=== PATIENT | female | born 1945 | race Caucasian/White ===

== ENCOUNTER 2021-09-07 06:00 | Day surgery (SDC) | payer OTHER ==
[~2021-09-07] VITALS: Ht 160 cm; Wt 47.6 kg
[~2021-09-07 06:00] MED LIST: CHILDREN'S ASPI81 MG PO; LYRICA100 MG PO; NORVASC2.5 M1 PO; PROVENTIL HFA6.7 GM IH; SYNTHROID50 MCG PO; ZESTRIL10 M1 PO; ZOCOR20 MG PO
== END 2021-09-07 11:50 | disposition home or self-care (01) ==
LOC: CIR.AMB 06:00
PROVIDERS: ATTEND Anesthesiology Pain Medicine
DX: M51.37 Other intervertebral disc degeneration, lumbosacral region (principal); M43.16 Spondylolisthesis, lumbar region; M54.41 Lumbago with sciatica, right side; J45.909 Unspecified asthma, uncomplicated; M19.90 Unspecified osteoarthritis, unspecified site; E78.00 Pure hypercholesterolemia, unspecified; E03.9 Hypothyroidism, unspecified; Z88.0 Allergy status to penicillin; Z88.8 Allergy status to other drugs, medicaments and biological substances; I10 Essential (primary) hypertension; Z87.891 Personal history of nicotine dependence